=== PATIENT | male | born 1955 | race Caucasian/White ===

== ENCOUNTER 2022-03-14 09:08 | Emergency (ER) | payer MEDICARE ==
[2022-03-14] MEDS ORDERED: Morphine 4 MG/ML VIAL ONE (09:42)
[2022-03-14] MEDS ORDERED: Ketorolac Tromethamine 30 MG/ML VIAL ONE (09:43)
[2022-03-14] MEDS ORDERED: Ondansetron PF 4 MG/2 ML Vial ONE (09:43)
[2022-03-14] MEDS ORDERED: Promethazine HCl 25 MG/ML VIAL ONE (10:01)
== END 2022-03-14 11:50 | disposition home or self-care (01) ==
LOC: CSHERS 09:08
DX: S32.010A Wedge compression fracture of first lumbar vertebra, initial encounter for closed fracture (principal); W17.89XA Other fall from one level to another, initial encounter; F17.220 Nicotine dependence, chewing tobacco, uncomplicated
CPT/HCPCS: 70450; 72125; 72128; 72131; 96374; 96375; J1885; J2270; J2405; J2550